=== PATIENT | male | born 2000 | race Caucasian/White ===

== ENCOUNTER 2022-06-12 22:31 | Emergency (ER) | payer MEDICAID ==
[~2022-06-12] VITALS: Ht 172.7 cm; Wt 98.0 kg
[2022-06-13 01:35] LABS: BASOPHILS % 0.2 % (0.0-2.0); EOSINOPHILS % 0.2 % (0.0-5.0); HEMATOCRIT. 48.1 % (42.0-52.0); LYMPHOCYTES % 21.1 % (20.0-50.0); MEAN CORPUSCULAR VOLUME 86.8 fL (80.0-94.0); MONOCYTES % 5.4 % (2.0-8.0); NEUTROPHILS % 73.1 % (40.0-76.0); PLATELET 186 x1000/uL (130-400); RED BLOOD CELL COUNT 5.54 mill/uL (4.7-6.1); RED CELL DISTRIBUTION WIDTH 13.8 % (11.6-14.6)
[2022-06-13 01:40] LABS: CHLORIDE 107 mEq/L (98-107)
[2022-06-13 04:00] VITALS: BP 126/85
== END 2022-06-13 04:00 | disposition home or self-care (01) ==
LOC: ER 22:31
DX: R07.89 Other chest pain (principal); M25.512 Pain in left shoulder; F12.10 Cannabis abuse, uncomplicated
CPT/HCPCS: 36415; 71045; 80053; 84484; 85025; 93005; 99285

== ENCOUNTER 2022-06-30 00:05 | Emergency (ER) | payer OTHER ==
[~2022-06-30] VITALS: Ht 172.7 cm; Wt 91.0 kg
[2022-06-30 00:10] VITALS: BP 116/74
[2022-06-30 02:17] LABS: CLARITY URINE CLOUDY (CLEAR); COLOR URINE YELLOW (YELLOW); KETONES URINE NEGATIVE (NEGATIVE); LEUKOCYTE ESTERASE URINE 3+ (NEGATIVE); NITRITE URINE POSITIVE (NEGATIVE); OCCULT BLOOD URINE 3+ (NEGATIVE); PROTEIN URINE 1+ (NEGATIVE); SPECIFIC GRAVITY URINE 1.014 (1.005-1.030); UROBILINOGEN URINE 0.2 E.U./dL (0.2-1.0)
[2022-06-30] MEDS ORDERED: SULF1TAB48 MT (02:34)
== END 2022-06-30 03:07 | disposition home or self-care (01) ==
LOC: ER 00:05
DX: N39.0 Urinary tract infection, site not specified (principal); F12.10 Cannabis abuse, uncomplicated
CPT/HCPCS: 76870; 81003; 87186; 93976; 99284